=== PATIENT | female | born 1965 | race Caucasian/White ===

== ENCOUNTER 2022-01-03 15:08 | Emergency (ER) | payer MEDICAID ==
[~2022-01-03] VITALS: Ht 160 cm; Wt 59.1 kg
[2022-01-03 20:05] VITALS: BP 146/96
== END 2022-01-03 20:24 | disposition home or self-care (01) ==
LOC: EMS 15:11
DX: M25.551 Pain in right hip (principal); Z88.0 Allergy status to penicillin; E78.00 Pure hypercholesterolemia, unspecified; I10 Essential (primary) hypertension; F17.210 Nicotine dependence, cigarettes, uncomplicated
CPT/HCPCS: 73502; 99283